=== PATIENT | male | born 1965 | race African-American/Black ===

== ENCOUNTER 2022-07-10 15:17 | Emergency (ER) | payer MEDICAID, OTHER ==
[~2022-07-10] VITALS: Ht 177.8 cm; Wt 85.0 kg
[2022-07-10 18:15] VITALS: BP 164/101
[2022-07-10] MEDS ORDERED: METHOCARBAMOL 500MG TABLET PO ONE (18:15)
[2022-07-10] MEDS ORDERED: KETOROLAC 30MG/ML VIAL IM ONE (18:15)
[2022-07-10] MEDS ORDERED: METH-653 MT (19:57)
[2022-07-10] MEDS ORDERED: IBUP-2029 MT (19:57)
== END 2022-07-10 20:17 | disposition home or self-care (01) ==
LOC: ER 15:17
DX: M48.061 Spinal stenosis, lumbar region without neurogenic claudication (principal); I10 Essential (primary) hypertension
CPT/HCPCS: 72131; 96372; 99285; J1885; Z7610